=== PATIENT | female | born 1950 | race Caucasian/White ===

== ENCOUNTER 2022-07-13 09:27 | Outpatient (CLI) | payer MEDICARE, OTHER | END 2022-07-13 09:28 | disposition home or self-care (01) | LOC: CSHRAD 09:27 | PROVIDERS: ATTEND Internal Medicine Rheumatology | DX: M05.79 Rheumatoid arthritis with rheumatoid factor of multiple sites without organ or systems involvement (principal); R06.2 Wheezing; J98.4 Other disorders of lung | CPT/HCPCS: 36415; 71046; 80053; 80061; 82306; 84439; 84443 ==

== ENCOUNTER 2023-12-28 09:27 | Outpatient (CLI) | payer MEDICARE | END 2023-12-28 09:28 | disposition home or self-care (01) | LOC: CSHMAMMO 09:27 | PROVIDERS: ATTEND Physician Assistant | DX: Z12.31 Encounter for screening mammogram for malignant neoplasm of breast (principal) | CPT/HCPCS: 77063; 77067 ==